=== PATIENT | male | born 1985 | race Hispanic/Latino ===

== ENCOUNTER 2018-11-13 18:12 | Emergency (ER) | payer OTHER ==
[2018-11-13] MEDS ORDERED: IBUPROFEN PO ONE ×2 (18:26→18:29)
--- NOTE | 2018-11-13 18:28 | Emergency Department Report ---
Blank Doc - Documentation Documentation: 33 y/o male comes in for right foot pain after a tire has fell on it around 1 pm. Pain is 9/10.
--- NOTE | 2018-11-13 19:25 | XRay Report ---
PROCEDURE: XR FOOT 3+V RT TECHNIQUE: Frontal, lateral, oblique views right foot HISTORY: tire fell on rt foot pain. COMPARISONS: None FINDINGS: There is no evidence of fracture or subluxation. The joint spaces are maintained. There is soft tissue swelling on the dorsal aspect of the midfoot. IMPRESSION: 1. Soft tissue swelling without plain film evidence of fracture and without evidence of subluxation. If further imaging is required, CT may be helpful. This document is electronically signed by Chioma Rendon MD., Nov 13 2018 07:23:51 PM ET
[2018-11-13] MEDS ORDERED: PERCOCET 5/325 PO ONE (21:29)
[2018-11-13] MEDS ORDERED: ZOFRAN ODT PO ONE (21:30)
[2018-11-13 22:57] VITALS: BP 139/84
--- NOTE | 2018-11-13 23:16 | XRay Report ---
PROCEDURE: XR ANKLE 3+V RT TECHNIQUE: Right ankle radiographs, AP, lateral, and oblique views. HISTORY: right ankle injury COMPARISONS: None . FINDINGS: Fracture (s) and/or Dislocation(s): None . Alignment: Normal . Joint space(s): Normal . Soft tissues: Normal . Bone mineralization: Normal . Foreign bodies: None . Calcaneal spurring: None . IMPRESSION: Normal Examination . This document is electronically signed by Sada Rajput DO., Nov 13 2018 11:14:53 PM ET
--- NOTE | 2018-11-13 23:31 | Emergency Department Report ---
ED Lower Extremity HPI - General Chief Complaint: Extremity Injury, Lower Stated Complaint: RT FOOT INJURY Time Seen by Provider: 11/13/18 22:37 Source: patient Mode of arrival: Wheelchair Limitations: Physical Limitation - History of Present Illness Initial Comments: The patient is a 33-year-old white male with no past medical history except DVT of left leg, who presents to the ED with c/o acute onset persistent severe right ankle and foot pain after a heavy Truck wheel fell on his right ankle and foot 7 hours ago. Patient states that the right ankle and foot have swollen and that the pain has worsened and he can hardly bear weight on right ankle or foot. Patient denies dyspnea, nausea, vomiting, dizziness, numbness, tingling or weakness of right ankle or foot. MD Complaint: ankle injury (right), foot injury (right) -: Sudden, hour(s) (7), This evening Injury: Ankle: Right (right ankle), Foot: Right (right ankle) Type of Injury: blunt, other (traumatic) Place: work Severity: severe Severity scale (0 -10): 7 Improves With: nothing Worsens With: weight bearing, movement, palpation Context: direct blow, other (heavy metallic wheel fell on her right ankle and foot) Associated Symptoms: swelling, able to partially bear weight. denies: numbness, tingling - Related Data Previous Rx's Medication Instructions Recorded Last Taken Type oxyCODONE /ACETAMINOPHEN [Percocet 1 tab PO Q6HR PRN #20 tablet 03/08/15 Unknown Rx 5/325] Acetaminophen/Codeine [Tylenol 1 tab PO Q6H PRN #12 tab 11/13/18 Unknown Rx /Codeine # 3 tab] Cyclobenzaprine [Flexeril] 10 mg PO Q8H PRN #15 tablet 11/13/18 Unknown Rx Ibuprofen [Motrin] 800 mg PO Q8HR PRN #20 tablet 11/13/18 Unknown Rx Allergies Allergy/AdvReac Type Severity Reaction Status Date / Time amoxicillin AdvReac Rash Verified 03/08/15 18:36 ED Review of Systems ROS: Stated complaint: RT FOOT INJURY Other details as noted in HPI Comment: All other systems reviewed and negative Constitutional: no symptoms reported, see HPI. denies: diaphoresis, fever, malaise Eyes: as per HPI. denies: eye pain, eye discharge, vision change ENT: as per HPI. denies: ear pain, throat pain, dental pain, hearing loss Respiratory: no symptoms reported, see HPI. denies: cough, orthopnea, shortness of breath, SOB with exertion, SOB at rest, wheezing Cardiovascular: as per HPI. denies: chest pain, edema Endocrine: no symptoms reported, see HPI. denies: excessive sweating, flushing, intolerance to cold, intolerance to heat, increased hunger, increased urine, unexplained weight gain, unexplained weight loss Genitourinary: as per HPI. denies: urgency, dysuria, frequency, hematuria, discharge, testicular pain, testicular mass Skin: as per HPI. denies: rash, change in color, change in hair/nails Neurological: as per HPI. denies: headache, numbness, paresthesias, abnormal gait, vertigo Psychiatric: as per HPI. denies: anxiety, depression, auditory hallucinations, visual hallucinations, homicidal thoughts Hematological/Lymphatic: as per HPI ED Past Medical Hx - Past Medical History Previous Medical History?: Yes Hx Deep Vein Thrombosis: Yes (Left leg) Hx Asthma: Yes - Surgical History Past Surgical History?: Yes Additional Surgical History: Blood Clot Removal from Left Leg - Social History Smoking Status: Current Every Day Smoker Substance Use Type: Alcohol - Medications Home Medications: Home Medications Medication Instructions Recorded Confirmed Last Taken Type oxyCODONE /ACETAMINOPHEN [Percocet 1 tab PO Q6HR PRN #20 tablet 03/08/15 Unknown Rx 5/325] Acetaminophen/Codeine [Tylenol 1 tab PO Q6H PRN #12 tab 11/13/18 Unknown Rx /Codeine # 3 tab] Cyclobenzaprine [Flexeril] 10 mg PO Q8H PRN #15 tablet 11/13/18 Unknown Rx Ibuprofen [Motrin] 800 mg PO Q8HR PRN #20 tablet 11/13/18 Unknown Rx ED Physical Exam - General Limitations: No Limitations General appearance: alert, in no apparent distress - Head Head exam: Present: atraumatic, normocephalic, normal inspection - Eye Eye exam: Present: normal appearance, PERRL, EOMI. Absent: scleral icterus, conjunctival injection, nystagmus - ENT ENT exam: Present: normal exam, normal orophraynx, mucous membranes moist, TM's normal bilaterally, normal external ear exam - Neck Neck exam: Present: normal inspection, full ROM. Absent: tenderness, meningismus, lymphadenopathy - Respiratory Respiratory exam: Present: normal lung sounds bilaterally. Absent: respiratory distress, wheezes, rales, rhonchi, chest wall tenderness, accessory muscle use, decreased breath sounds - Cardiovascular Cardiovascular Exam: Present: tachycardia, normal heart sounds - GI/Abdominal GI/Abdominal exam: Present: soft, normal bowel sounds. Absent: distended, tenderness, guarding, hyperactive bowel sounds, hypoactive bowel sounds, organomegaly - Rectal Rectal exam: Present: deferred - Extremities Exam Extremities exam: Present: tenderness (Right ankle and foot), normal capillary refill, joint swelling (right ankle and foot). Absent: full ROM (limited due to pain) - Expanded Lower Extremity Exam Right Ankle exam: Present: tenderness, swelling. Absent: full ROM (due to pain), abrasion, laceration, deformity, erythema Foot/Toe exam: Present: tenderness, swelling. Absent: full ROM (due to pain), dislocation, amputation, foreign body, calcaneal tenderness, nail avulsion Neuro vascular tendon exam: Present: no vascular compromise Gait: Positive: observed and limited by pain 1 - Palpable severe right ankle and foot tenderness with limited ROM due to pain - Back Exam Back exam: Present: normal inspection, full ROM. Absent: tenderness, CVA tenderness (R), CVA tenderness (L), muscle spasm, paraspinal tenderness, vertebral tenderness - Neurological Exam Neurological exam: Present: alert, oriented X3, CN II-XII intact, normal gait, reflexes normal - Psychiatric Psychiatric exam: Present: normal affect - Skin Skin exam: Present: warm, dry, intact, normal color ED Course Vital Signs 11/13/18 11/13/18 18:19 22:57 Temperature 98.1 F 97.6 F Pulse Rate 106 H 65 Respiratory 20 16 Rate Blood Pressure 143/81 Blood Pressure 139/84 [Right] O2 Sat by Pulse 97 98 Oximetry - Reevaluation(s) Reevaluation #1: 11/13/18 23:35 Patient is alert and oriented x 3 and is in no acute distress. Patient in in pain. Patient was treated for pain. The Right ankle and and foot x-rays show no acute fractures or dislocations. Patient's right ankle and foot were splinted with harika wrap, and patient given crutches for ambulation. Patient was discharged home on pain medications, and referred to the Orthopedic Surgeon, Dr. Mota for follow up. Patient advised to return to the ED immediately if symptoms get worse. ED Lower Extremity MDM - Radiology Data Radiology results: report reviewed, image reviewed Right ankle, foot x-rays: No acute fractures - Medical Decision Making Patient is alert and oriented x 3 and is in no acute distress. Patient in in pain. Patient was treated for pain. The Right ankle and and foot x-rays show no acute fractures or dislocations. Patient's right ankle and foot were splinted with harika wrap, and patient given crutches for ambulation. Patient was discharged home on pain medications, and referred to the Orthopedic Surgeon, Dr. Mota for follow up. Patient advised to return to the ED immediately if symptoms get worse. - Differential Diagnosis Right ankle fractrue, right foot contusion Critical care attestation.: If time is entered above; I have spent that time in minutes in the direct care of this critically ill patient, excluding procedure time. ED Disposition Clinical Impression: Severe sprain of right ankle Qualifiers: Encounter type: initial encounter Qualified Code(s): S93.401A - Sprain of unspecified ligament of right ankle, initial encounter Contusion of right foot Qualifiers: Encounter type: initial encounter Qualified Code(s): S90.31XA - Contusion of right foot, initial encounter Disposition: TO HOME OR SELFCARE Is pt being admited?: No Does the pt Need Aspirin: No Condition: Stable Instructions: Ankle Sprain (ED), Foot Contusion (ED) Additional Instructions: Take medications with food, drink plenty of fluids and follow up as advised with Dr. Mota if symptoms get worse. Return to the ED immediately if symptoms get worse. Prescriptions: Cyclobenzaprine [Flexeril] 10 mg PO Q8H PRN #15 tablet PRN Reason: Spasms Ibuprofen [Motrin] 800 mg PO Q8HR PRN #20 tablet PRN Reason: Pain , Severe (7-10) Acetaminophen/Codeine [Tylenol /Codeine # 3 tab] 1 tab PO Q6H PRN #12 tab PRN Reason: Pain , Severe (7-10) Referrals: NARESH BARNETT MD [Primary Care Provider] - 3-5 Days MELECIO MOTA MD [Staff Physician] - 3-5 Days Time of Disposition: 23:44 Print Language: CYPRIOT
== END 2018-11-14 00:22 | disposition home or self-care (01) ==
LOC: ED 18:12
DX: S93.401A Sprain of unspecified ligament of right ankle, initial encounter (principal); S90.31XA Contusion of right foot, initial encounter; J45.909 Unspecified asthma, uncomplicated; F17.200 Nicotine dependence, unspecified, uncomplicated; W18.30XA Fall on same level, unspecified, initial encounter; Y93.89 Activity, other specified; Y92.89 Other specified places as the place of occurrence of the external cause; Y99.8 Other external cause status
CPT/HCPCS: Q0162

== ENCOUNTER 2020-07-16 20:07 | Emergency (ER) | payer SELFPAY ==
--- NOTE | 2020-07-16 22:33 | Emergency Department Report ---
Chief Complaint: High BP Stated Complaint: LIGHTHEADED DIZZINESS BLURRY VISION Time Seen by Provider: 07/16/20 22:28 - HPI History of Present Illness: Mr. Hinton is a 35-year-old pleasant male who presents to the ED due to elevated blood pressure while he was new psychiatrist appointment earlier today. He states that the nurse that the appointment after taking 2 blood pressure readings which were elevated w asked him to come to the emergency room to be evaluated. Patient states after that he went home and while he was at home he had a little bit of a headache so he decided to come to the ED to be evaluated. Patient states he does not have a history of hypertension. Patient states that he does have a history of chronic pain since his right knee surgery 2 weeks ago. Patient states that he is unable to walk on the right leg yet due to knee pain and was placed in a boot by his orthopedic. Patient denies fever, chest pain, shortness of breath, dizziness, blurry vision, abdominal pain or any other symptoms. - ROS Review of Systems: As noted in HPI - Exam Vital Signs: Vital Signs 07/16/20 20:44 Temperature 98.0 F Pulse Rate 97 H Respiratory 18 Rate Blood Pressure 137/94 O2 Sat by Pulse 96 Oximetry Physical Exam: GENERAL APPEARANCE: Well developed, well nourished, in no acute distress. SKIN: Inspection of the skin reveals no rashes, ulcerations or petechiae. LUNGS: Auscultation of the lungs revealed normal breath sounds without any other adventitious sounds or rubs. CARDIOVASCULAR: There was a regular rate and rhythm without any murmurs, gallops, rubs. The carotid pulses were normal and 2+ bilaterally without NEUROLOGIC: Alert and oriented x 3. Normal affect. Gait was normal. Normal deep tendon reflexes with no pathological reflexes. Sensation to touch was normal. MSE screening note: Focused history and physical exam performed. Due to findings the following was ordered: ED Medical Decision Making - Medical Decision Making 35-year-old male who presented for elevated blood pressure prior to ED arrival. Patient had mild elevated blood pressure in ED. Patient was asymptomatic during ED stay. Patient noted to being crutches with the right boot placed and in a wheelchair. Patient does note that he has pain medication as prescribed by his orthopedic surgeon. Primary care physician referral was given to patient. Patient had no acute distress or respiratory distress during ED stay. Patient understands that he will check his blood pressure every day and follow- up with a primary care physician. I did discuss with patient if he has any new or worsening symptoms he may return to the ED immediately. ED Disposition for MSE Clinical Impression: Elevated BP without diagnosis of hypertension Disposition: DC- TO HOME OR SELFCARE Is pt being admited?: No Does the pt Need Aspirin: No Condition: Stable Instructions: Preventing Hypertension, Hypertension, Adult, [id number] Additional Instructions: Follow-up with primary care physician as referred. Continue to monitor your blood pressure every day. If you have any worsening symptoms or any new symptoms please return to ED immediately. Referrals: PRIMARY CARE, [Primary Care Provider] - 3-5 Days [facility] [Outside] - 3-5 Days [facility] [Outside] - 3-5 Days [facility] [Outside] - 3-5 Days [facility] [Provider Group] - 3-5 Days Forms: Accompanied Note, Work/School Release Form(ED) Time of Disposition: 22:33
[2020-07-16 22:37] VITALS: BP 132/93
== END 2020-07-16 22:45 | disposition home or self-care (01) ==
LOC: ED 20:07
DX: I10 Essential (primary) hypertension (principal); Z91.040 Latex allergy status; Z88.0 Allergy status to penicillin
CPT/HCPCS: 99282